=== PATIENT | male | born 1970 | race Caucasian/White ===

== ENCOUNTER 2020-01-26 11:49 | Emergency (ER) | payer OTHER, MEDICAID, SELFPAY ==
[2020-01-26 11:59] VITALS: BP 111/76; PULSE 86; RESP 15; TEMP 36.9; O2SAT 100; BMI 24.4
--- NOTE | 2020-01-26 12:00 | ED_ITS ---
HPI - General Adult General Chief complaint: Dental/Oral Stated complaint: Tongue is swelling, hurts to talk and swallow Time Seen by Provider: 01/26/20 11:55 History of Present Illness HPI narrative: 49-year-old gentleman with the history of smoking and methamphetamine use presents with complaints of a swollen tongue and mild dyspnea for which he would like to be tested for Covid19. He describes swelling and pain on the left side of his tongue is been present for 2-3 days seems like it is getting worse and this morning he was forced to have super breakfast which prompted seeking medical evaluation. While here he notes that he has been chronically short of breath due to smoking for approximately 30 years denies any fevers, myalgias or general malaise. Related Data Home Medications Medication Instructions Recorded Confirmed [MARIJUANA] #0 10/16/06 [METHAMPHETAMINE] #0 10/16/06 Allergies Allergy/AdvReac Type Severity Reaction Status Date / Time No Known Drug Allergies Allergy Verified 01/26/20 11:59 Review of Systems Review of Systems ROS Unobtainable: All systems reviewed & are unremarkable except as noted in HPI and below Patient History Medical History Smoker (Acute) Exam Narrative Exam Narrative: General: Healthy appearing, in no acute distress. Able to give a complete and coherent history. Well-nourished well-developed HEENT: Moist mucous membranes, normal sclera with reactive pupils, there is an approximately 6 mm in diameter healing apt this ulcer on the underside of the tongue left side that is causing his current symptoms. It appears to be healing nicely and does have some surrounding induration. Neck: No lymphadenopathy, supple Respiratory: Lungs are clear to auscultation, no wheezing no rales no rhonchi. Full and symmetrical air movement Cardiac: Regular rate and rhythm no murmurs no bruits Skin: Warm and dry, no rashes Neurologic: Grossly neurologically intact with no obvious asymmetries or abnormalities Extremities: No trauma, well perfused Psych: Cooperative, appropriate insight and affect Initial Vital Signs Initial Vital Signs: Vital Signs Temperature 98.4 F 01/26/20 11:59 Pulse Rate 86 01/26/20 11:59 Respiratory Rate 15 01/26/20 11:59 Blood Pressure 111/76 01/26/20 11:59 Pulse Oximetry 100 01/26/20 11:59 Medical Decision Making Medical Records Medical records reviewed: Yes I reviewed the patient's medical records. [facility] Narrative Medical decision making narrative: Small healing aphthous ulcer on the undersurface left side of his tongue that is causing the pain and edema. We discussed Covid19 testing in light of absolutely no symptoms or complaints of active illness and was shared decision making decided to not obtained a swab. Discharge Plan Departure Patient Disposition: Home Clinical Impression: Injury of tongue Qualifiers: Encounter type: initial encounter Qualified Code(s): S09.93XA - Unspecified injury of face, initial encounter Discharge Date/Time: 01/26/20 12:34 Instructions: DI for Frenulum Laceration in the Mouth Activity Restrictions/Additional Instructions: Thank you for coming in today It looks like you bit or injured the side of your tongue and is healing nicely with some appropriately surrounding swelling. I have given you had discharge instructions that do not fit perfectly but the healing process described is the same. I fully expect that you will feel back to normal within 2-3 days. I appreciate your concern regarding Covid19. At this point, with no fever, myalgias, sniffles, sore throat, diarrhea and generally feeling well I do not recommend testing. That bit of chronic shortness of breath that you are having can definitely be blamed on your smoking. Anything that you can do to stop smoking in all forms will go on to make you healthier I wish you the best Prescriptions: No Action [MARIJUANA] Qty: 0 RF: 0 [METHAMPHETAMINE] Qty: 0 RF: 0
[2020-01-26 12:33] VITALS: BP 111/71; PULSE 71; RESP 15; O2SAT 99
== END 2020-01-26 12:34 | disposition home or self-care (01) ==
LOC: ED 12:23
PROVIDERS: Emergency Provider Emergency Medicine
DX: S09.93XA Unspecified injury of face, initial encounter (principal); R06.00 Dyspnea, unspecified
CPT/HCPCS: 99281

== ENCOUNTER 2020-03-21 12:48 | Emergency (ER) | payer OTHER, MEDICAID, SELFPAY ==
[2020-03-21 12:50] VITALS: BP 131/85; PULSE 95; RESP 12; TEMP 36.8; O2SAT 99; BMI 24.4
--- NOTE | 2020-03-21 13:04 | DI.RAD.S_ITS ---
PROCEDURE: XR HAND LT MIN 3V INDICATIONS: L thumb MCP joint pain TECHNIQUE: 3 views of the hand(s) acquired. COMPARISON: None. FINDINGS: Bones: No fractures or dislocations. Carpal bones are normally aligned. No suspicious bony lesions. First MCP joint osteoarthritic changes are noted. Soft tissues: No suspicious soft tissue calcifications. IMPRESSION: Mild first MCP joint osteoarthritis. No acute fracture or dislocation. Dictated by: Hugh Lambert M.D. on 03/21/2020 at 13:30 Approved by: Hugh Lambert M.D. on 03/21/2020 at 13:42
--- NOTE | 2020-03-21 13:09 | ED_ITS ---
HPI - Extremity Problem <CHARLY Marin - Last Filed: 03/21/20 16:32> General Chief complaint: Extremity Problem,Nontraumatic Stated complaint: lt thumb bothering him/ swelling/ anxiety Time Seen by Provider: 03/21/20 12:53 Source: patient Mode of arrival: Ambulatory Limitations: no limitations History of Present Illness HPI Narrative: 50-year-old male presents emergency department complaining of left thumb pain for the past couple months. He states he believes he broke his thumb approximately 2-3 years ago but was not evaluated. Patient states he feels a aching pain approximately 2-3/10 along top of his thumb and MCP joint. Thumb is worse with flexion and extension. Patient denies any trauma, numbness, tingling, decreased strength, hand pain, elbow pain, or any other concerns. Related Data Home Medications Medication Instructions Recorded Confirmed [MARIJUANA] #0 10/16/06 [METHAMPHETAMINE] #0 10/16/06 Allergies Allergy/AdvReac Type Severity Reaction Status Date / Time No Known Drug Allergies Allergy Verified 03/21/20 12:54 Review of Systems <CHARLY Marin - Last Filed: 03/21/20 16:32> Review of Systems Narrative: REVIEW OF SYSTEMS: GENERAL: Denies fever or chills. HENT: No head trauma. CARDIOVASCULAR: No chest pain or syncope. RESPIRATORY: No shortness of breath or cough. GASTROINTESTINAL: No nausea, vomiting, diarrhea, or constipation. GENITOURINARY: No flank pain or dysuria. MUSCULOSKELETAL: Complains of thumb pain, see HPI. INTEGUMENTARY: No rash, lesions, or pruritus. NEURO: No numbness, tingling. Patient History <CHARLY Marin - Last Filed: 03/21/20 16:32> Medical History Smoker (Acute) Social History Smoking Status: Current every day smoker Smoking Status: Current every day smoker alcohol intake frequency: holidays/special occasions only Substance Use Type: does not use Exam <CHARLY Marin - Last Filed: 03/21/20 16:32> Initial Vital Signs Initial Vital Signs: Vital Signs Temperature 98.2 F 03/21/20 12:50 Pulse Rate 95 H 03/21/20 12:50 Respiratory Rate 12 03/21/20 12:50 Blood Pressure 131/85 03/21/20 12:50 Pulse Oximetry 99 03/21/20 12:50 PHYSICAL EXAMINATION: GENERAL: Well groomed, alert, and cooperative. Answers questions promptly and appropriately. Vital signs noted. HENT: Normocephalic, atraumatic. EYES: Symmetrical, sclera white, no periorbital swelling. RESPIRATORY: Normal respiratory rate, trachea midline, airway patent. No stridor, nasal flaring or accessory muscle use. MUSCULOSKELETAL: Tenderness to dorsal aspect of MCP joint of left thumb, equal strength bilaterally against resistance with flexion and extension. No swelling, erythema, ecchymosis, lesions, or increased temp. Normal gait and coordination. Equal tone and mass bilaterally. EXTREMITIES: CMS intact. No pedal edema. SKIN: Warm, dry, soft, appropriate color for ethnicity. No lesions, rashes, or wounds. NEURO: Alert and Oriented X 3. No sensory deficits. PSYCH: Appropriate affect and mood. <DO Vanita Eden Last Filed: 03/21/20 16:59> Initial Vital Signs Initial Vital Signs: Vital Signs Temperature 98.2 F 03/21/20 12:50 Pulse Rate 95 H 03/21/20 12:50 Respiratory Rate 12 03/21/20 12:50 Blood Pressure 131/85 03/21/20 12:50 Pulse Oximetry 99 03/21/20 12:50 Course <CHARLY Marin - Last Filed: 03/21/20 16:32> Orders Ordered: ED Orders 03/21/20 13:04 XR hand LT min 3V Stat Vital Signs Vital signs: Vital Signs - 8 hr 03/21/20 12:50 Temperature 98.2 F Pulse Rate 95 H Respiratory Rate 12 Blood Pressure 131/85 Pulse Oximetry 99 <DO Vanita Eden Last Filed: 03/21/20 16:59> Orders Ordered: ED Orders 03/21/20 13:04 XR hand LT min 3V Stat Vital Signs Vital signs: Vital Signs - 8 hr 03/21/20 12:50 Temperature 98.2 F Pulse Rate 95 H Respiratory Rate 12 Blood Pressure 131/85 Pulse Oximetry 99 MDM - Extremity (Nontraumatic) <CHARLY Marin - Last Filed: 03/21/20 16:32> Medical Records Attestation: I reviewed the patient's medical records. Lab Data Attestation: I reviewed the patient's lab results. Imaging Data Extremity x-ray #1: Radiologist's Impression: [address] [address] XRay Report Signed Patient: Valentín Perrin LMR#: [id number] : 1970Acct:[id number] Age/Sex: 50 / MDate of Service: 03/21/20 Loc: ED Accession Number: [id number] Procedure: XR hand LT min 3V Ordering Provider: Diana Strong PROCEDURE: XR HAND LT MIN 3V INDICATIONS: L thumb MCP joint pain TECHNIQUE: 3 views of the hand(s) acquired. COMPARISON: None. FINDINGS: Bones: No fractures or dislocations. Carpal bones are normally aligned. No suspicious bony lesions. First MCP joint osteoarthritic changes are noted. Soft tissues: No suspicious soft tissue calcifications. IMPRESSION: Mild first MCP joint osteoarthritis. No acute fracture or dislocation. Dictated by: Hugh Lambert M.D. on 03/21/2020 at 13:30 Approved by: Hugh Lambert M.D. on 03/21/2020 at 13:42 MDM Narrative Medical decision making narrative: 50-year-old male presents emergency department complaining of thumb pain for the past few years. Patient denies any trauma or direct injury but is concerned from previous injury years ago. X-ray shows MCP joint arthritis which correlates with the location of patient's pain, I suspect this is most likely the pain that he is feeling. Less likely infectious joint, gout, or trauma due to lack of erythema, ecchymosis, or swelling. Patient encouraged to use Tylenol, he was given a brace to use at night for the next few days. He was counseled extensively about continue to uses some to prevent muscle atrophy. Follow-up was encouraged. Patient agreed to plan of care verbalized understanding. Discharge Plan Departure Patient Disposition: Home Clinical Impression: Degenerative arthritis of thumb Qualifiers: Laterality: right Qualified Code(s): M18.11 - Unilateral primary osteoarthritis of first carpometacarpal joint, right hand Discharge Date/Time: 03/21/20 14:25 Instructions: DI for Arthritis Activity Restrictions/Additional Instructions: Thank you for entrusting me with your care today. As discussed, your x-ray is negative for fractures but shows arthritis in your thumb. There is no fractures seen on x-ray. I recommend taking Tylenol and/or ibuprofen as needed for pain. I have given you a splint to wear at night to help with pain. Do not wear this splint very frequently as this could cause muscle atrophy. Please follow-up with your primary care provider in the next week for further evaluation if needed. Return emergency department for any new or worsening symptoms such as severe pain, chest pain, shortness of breath, or fevers. Prescriptions: No Action [MARIJUANA] Qty: 0 RF: 0 [METHAMPHETAMINE] Qty: 0 RF: 0 <Chase Calderon, DO - Last Filed: 03/21/20 16:59> Cosign ED Attending Cosignature Attestation: Dr Calderon Co-Sign Statement: I was available for consultation during this patient's emergency department visit. This chart is signed by myself for administrative purposes only. I did not have direct contact with this patient during this visit. They were seen independently by the APC.
== END 2020-03-21 14:25 | disposition home or self-care (01) ==
PROVIDERS: Emergency Provider Nurse Practitioner
DX: M18.11 Unilateral primary osteoarthritis of first carpometacarpal joint, right hand (principal)
CPT/HCPCS: 73130; 99283

== ENCOUNTER 2020-09-24 08:31 | Emergency (ER) | payer OTHER, MEDICAID, SELFPAY ==
[2020-09-24 08:40] VITALS: BP 134/83; PULSE 96; RESP 18; TEMP 36.7; O2SAT 100; BMI 24.4
--- NOTE | 2020-09-24 08:51 | ED.GENADULT ---
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 He is concerned about an infection. Is asking for antibiotics. Related Data Home Medications Medication Instructions Recorded Confirmed [MARIJUANA] #0 10/16/06 Previous Rx's Medication Instructions Recorded penicillin V potassium 500 mg PO QID 7 Days #28 tab 09/24/20 Allergies Allergy/AdvReac Type Severity Reaction Status Date / Time No Known Drug Allergies Allergy Verified 09/24/20 08:43 Review of Systems Constitutional Constitutional: Denies fever(s) Eyes Eyes: Denies blurry vision ENT Ears, Nose, Mouth, and Throat: Denies dizziness, Denies sore throat and Denies throat swelling Respiratory Respiratory: Denies cough Integumentary/Breasts Skin/Breast: Denies lesions and Denies rash Neurologic Neurologic: Denies dizziness Hematologic/Lymphatic Hematologic/Lymphatic: Denies easy bleeding and Denies easy bruising Allergic/Immunologic Allergic/Immunologic: Denies throat swelling Patient History Medical History Smoker Social History Smoking Status: Current every day smoker Smoking Status: Current every day smoker alcohol intake frequency: holidays/special occasions only Substance Use Type: does not use Exam Initial Vital Signs Initial Vital Signs: Vital Signs Temperature 98.1 F 09/24/20 08:40 Pulse Rate 96 H 09/24/20 08:40 Respiratory Rate 18 09/24/20 08:40 Blood Pressure 134/83 09/24/20 08:40 Pulse Oximetry 100 09/24/20 08:40 Const General: cooperative and comfortable HENMT Face and sinus: other (Swelling right maxillary region) Mouth: tongue normal Teeth and gingiva: caries and poor dentition Throat: posterior oropharynx normal Eyes Visual Fofana: normal visual fofana by confrontation Resp Effort & Inspection: normal respiratory effort Skin Lesions: no lesions Rashes: no rashes Extrem General: capillary refill normal Course Vital Signs Vital signs: Vital Signs - 8 hr 09/24/20 08:40 Temperature 98.1 F Pulse Rate 96 H Respiratory Rate 18 Blood Pressure 134/83 Pulse Oximetry 100 Medical Decision Making MDM Narrative Medical decision making narrative: Patient has been sober for 1 year and adamantly states he does not want any pain medication. He states that he was only looking for antibiotics. He does have what appears to be a dental infection in his right upper maxillary region. No abscess seen on exam that would be amenable to draining here in the ER. Will start on antibiotics. He was informed that he needs to follow up with a dentist. He expressed understanding and agreement. Discharge Plan Departure Patient Disposition: Home Clinical Impression: Dental abscess Instructions: Tooth Abscess Activity Restrictions/Additional Instructions: It is important that you follow-up with a dentist. Take the antibiotics as directed. Return to the emergency department for any new or worsening symptoms Prescriptions: New penicillin V potassium 500 mg tablet 500 mg PO QID 7 Days Qty: 28 RF: 0 No Action [MARIJUANA] Qty: 0 RF: 0 [METHAMPHETAMINE] Qty: 0 RF: 0
--- NOTE | 2020-09-24 08:57 | ED.GENADULT ---
HPI - General Adult General Chief complaint: Dental/Oral Stated complaint: swelling in mouth Time Seen by Provider: 09/24/20 08:44 Source: patient Mode of arrival: Ambulatory Limitations: no limitations History of Present Illness HPI narrative: 50-year-old male here for evaluation of swelling to his right upper jaw. Patient states that he noticed last evening. He does have poor dentition secondary to prior drug use. He is concerned about infection. Has not tried anything for symptoms prior to arrival Related Data Previous Rx's Medication Instructions Recorded penicillin V potassium 500 mg PO QID 7 Days #28 tab 09/24/20 Allergies Allergy/AdvReac Type Severity Reaction Status Date / Time No Known Drug Allergies Allergy Verified 09/24/20 08:43 Review of Systems Constitutional Constitutional: Denies fever(s) ENT Ears, Nose, Mouth, and Throat: Denies dizziness Comments: Swelling right upper jaw Cardiovascular Cardiovascular: Denies dyspnea Respiratory Respiratory: Denies cough and Denies dyspnea Integumentary/Breasts Skin/Breast: Denies rash Neurologic Neurologic: Denies dizziness Patient History Medical History Smoker Social History Smoking Status: Current every day smoker Smoking Status: Current every day smoker alcohol intake frequency: holidays/special occasions only Substance Use Type: does not use Exam Initial Vital Signs Initial Vital Signs: Vital Signs Temperature 98.1 F 09/24/20 08:40 Pulse Rate 96 H 09/24/20 08:40 Respiratory Rate 18 09/24/20 08:40 Blood Pressure 134/83 09/24/20 08:40 Pulse Oximetry 100 09/24/20 08:40 Const General: cooperative and comfortable HENMT Head: normal to inspection and normocephalic Face and sinus: other (Swelling right upper trauma) Teeth and gingiva: poor dentition Throat: posterior oropharynx normal Resp Effort & Inspection: normal respiratory effort Skin Lesions: no lesions Rashes: no rashes Extrem General: capillary refill normal Course Vital Signs Vital signs: Vital Signs - 8 hr 09/24/20 08:40 Temperature 98.1 F Pulse Rate 96 H Respiratory Rate 18 Blood Pressure 134/83 Pulse Oximetry 100 Medical Decision Making MDM Narrative Medical decision making narrative: No abscess amenable to drainage here in the emergency department. Does have swelling in his right maxilla region. Does have very poor dentition. Patient was instructed that he needed to contact a dentist for definitive treatment. Will send home with antibiotics. He expressed understanding and agreement. Discharge Plan Departure Patient Disposition: Home Clinical Impression: Dental abscess Instructions: Tooth Abscess Activity Restrictions/Additional Instructions: It is important that you follow-up with a dentist. Take the antibiotics as directed. Return to the emergency department for any new or worsening symptoms Prescriptions: New penicillin V potassium 500 mg tablet 500 mg PO QID 7 Days Qty: 28 RF: 0
== END 2020-09-24 09:03 | disposition home or self-care (01) ==
PROVIDERS: Emergency Provider Emergency Medicine
DX: K04.7 Periapical abscess without sinus (principal)
CPT/HCPCS: 99281

== ENCOUNTER 2021-01-22 02:42 | Emergency (ER) | payer OTHER, MEDICAID, SELFPAY ==
[2021-01-22] VITALS (8 sets, daily range): BP systolic 121–136; BP diastolic 74–80; PULSE 64–83; RESP 11–41; TEMP 36.4–36.9; O2SAT 96–100; BMI 24.4
[2021-01-22] MEDS: KETOROLAC 60 MG/2 ML VIAL 15 MG IV (03:33)
--- NOTE | 2021-01-22 03:33 | DI.CT.S_ITS ---
PROCEDURE: CT KIDNEY URETER BLADDER (KUB) INDICATIONS: right flank pain TECHNIQUE: Noncontrast 5 mm thick sections acquired from the diaphragms to the symphysis. 5 mm thick coronal and sagittal reformats were then performed. For radiation dose reduction, the following was used: automated exposure control, adjustment of mA and/or kV according to patient size. COMPARISON: [facility], , CT ABDOMEN/PELVIS WITH CONTRAST, 10/16/2006, 14:53. FINDINGS: Image quality: Excellent. Lung bases: Lung bases are clear. Heart size is normal. Bibasilar dependent atelectasis. Urinary system: There is a 2 mm stone in the distal right ureter just proximal to the right ureterovesical junction. There is mild right hydronephrosis and perinephric stranding. Both kidneys are normal in size. Both ureters appear non-dilated throughout their expected courses. Bladder wall thickness is normal; no calcified bladder stones. Prostate is mildly enlarged. Other solid organs: Liver is normal in size. Gallbladder is normal. Pancreas is normal in contours. Spleen is normal in size. A 1.4 cm low-density nodule in the inferior aspect of spleen, probably a cyst or hemangioma. No adrenal nodules. Peritoneum and bowel: Unenhanced bowel loops demonstrate normal wall thickness and caliber. There is a moderate amount of stool in colon. No free fluid or air. Nodes and vessels: No retroperitoneal or mesenteric adenopathy by size criteria. Aorta and inferior vena cava are normal in caliber. Mild aortic calcification. Abdominal wall: No ventral hernias. Pelvis: No free pelvic fluid. No inguinal hernias or adenopathy. Bones: No suspicious bony lesions. No vertebral body compression fractures. Degenerative disc disease in lumbar spine. IMPRESSION: 1. A 2 mm obstructive stone in the distal right ureter causing mild right hydronephrosis. No significant discrepancy with the steward/stewardess night radiology preliminary report. Dictated by: Calos Jimenez M.D. on 01/22/2021 at 8:02 Approved by: Calos Jimenez M.D. on 01/22/2021 at 8:25
--- NOTE | 2021-01-22 03:47 | ED_ITS ---
HPI - Abdominal Pain General Chief Complaint: Abdominal Pain Stated Complaint: Rt upper quad pain Time Seen by Provider: 01/22/21 03:33 Source: patient and EMS Mode of arrival: EMS Limitations: no limitations History of Present Illness HPI narrative: Patient is a 50-year-old male who presents with sudden onset of right-sided pain. He says it is in his flank radiating around to his groin. Seems to be quite severe in in excruciating pain despite fentanyl given by EMS. He is nauseous but no vomiting no fever or chills. He has no prior history of kidney stone. MD complaint: abdominal pain Onset (ago): hour(s) Location: R flank Severity: severe Quality: stabbing Related Data Previous Rx's Medication Instructions Recorded hydrocodone-acetaminophen 1 tab PO Q6H PRN #10 tab 01/22/21 ondansetron 4 mg PO Q8H PRN #10 tab 01/22/21 Allergies Allergy/AdvReac Type Severity Reaction Status Date / Time No Known Drug Allergies Allergy Verified 09/24/20 08:43 Review of Systems Review of Systems Narrative: GENERAL: Denies chills, fatigue, malaise, fever, sweats, travel HEENT: Denies sinus pain, ear pain, sore throat, difficulty swallowing, neck pain RESPIRATORY: Denies dyspnea, cough, wheezing, hemoptysis, sputum. CARDIOVASCULAR: Denies chest pain, palpitations, orthopnea, edema GASTROINTESTINAL: See HPI : See HPI MUSCULOSKELETAL: Denies weakness, joint pain, or bony pain SKIN: No rash, no erythema, no pruritus NEUROLOGIC: Denies weakness, dizziness, headache, numbness, change in speech, confusion PSYCHIATRIC: No concerning psychosocial issues. 12 point review of systems is negative except for those stated above and HPI Patient History Medical History Smoker Social History Smoking Status: Current every day smoker Smoking Status: Current every day smoker alcohol intake frequency: holidays/special occasions only Substance Use Type: does not use Exam Initial Vital Signs Initial Vital Signs: Vital Signs Pulse Rate 69 01/22/21 02:47 Respiratory Rate 26 H 01/22/21 02:47 Blood Pressure 135/74 01/22/21 02:47 Pulse Oximetry 100 01/22/21 02:47 GENERAL: Alert 50-year-old male who appears in severe pain and in no acute distress. HEENT: Head atraumatic,EOMI, pupils reactive, face symmetric, moist mucous membranes CARDIOVASCULAR: Regular rate and rhythm without murmurs, rubs or gallops. RESPIRATORY: Breath sounds equal bilaterally, no wheezes rales or rhonchi. ABDOMEN: Soft, nontender. Normoactive bowel sounds all 4 quadrants. No guarding or rebound. Negative Evans sign : Right flank CVA tenderness EXTREMITIES: Normal range of motion, no clubbing or edema. Neurovascularly intact NEUROLOGICAL: Alert and oriented x4.Normal gait and speech. SKIN: Warm, dry, no laceration, no petechiae, no rashes or lesions. Course Orders Ordered: ED Orders 01/22/21 EKG-12 Lead Stat 01/22/21 03:28 EKG-12 Lead Stat 01/22/21 03:33 CT kidney ureter bladder (KUB) Stat 01/22/21 03:40 Complete Blood Count AUTO DIFF Stat Comprehensive Metabolic Panel Stat Lipase Stat Partial Thromboplastin Time Stat Prothrombin Time INR Stat Discontinued Medications Ketorolac Tromethamine (Ketorolac 60 Mg/2 Ml Vial) 15 mg IV NOW ONE Stop: 01/22/21 03:29 Last Admin: 01/22/21 03:33 Dose: 15 mg Documented by: ESNODINA Morphine Sulfate (Morphine 2 Mg/Ml Inj) 2 mg IV NOW ONE Stop: 01/22/21 06:52 Last Admin: 01/22/21 06:55 Dose: 2 mg Documented by: ESNODGRASS Morphine Sulfate (Morphine 2 Mg/Ml Inj) 2 mg IV NOW ONE Stop: 01/22/21 06:58 Vital Signs Vital signs: Vital Signs - 8 hr 01/22/21 02:47 01/22/21 02:48 01/22/21 03:00 Temperature 97.6 F Pulse Rate 69 71 64 Respiratory Rate 26 H 16 23 Blood Pressure 135/74 135/74 136/76 Pulse Oximetry 100 100 98 01/22/21 03:30 01/22/21 04:00 01/22/21 04:30 Temperature Pulse Rate 73 65 66 Respiratory Rate 41 H 11 L 11 L Blood Pressure Pulse Oximetry 100 100 99 01/22/21 05:00 01/22/21 07:15 Temperature 98.5 F Pulse Rate 69 83 Respiratory Rate 13 24 Blood Pressure 121/80 Pulse Oximetry 96 96 MDM - Abdominal Pain Lab Data Result diagrams: 01/22/21 03:40 01/22/21 03:40 Labs: Lab Results 01/22/21 01/22/21 01/22/21 Range/Units 03:40 03:40 03:40 WBC 12.1 H (4.5-11.0) X10^3/uL RBC 4.55 (4.5-5.9) X10^6/uL Hgb 13.8 (13.5-17.5) g/dL Hct 41.6 (41-53) % MCV 91.4 (80-100) fL MCH 30.4 (26-34) PG MCHC 33.3 (30-36) % RDW 14.3 (11.6-14.8) % Plt Count 275 (150-400) X10^3/uL Neut % (Auto) 78.2 H (50-75) % Lymph % (Auto) 13.4 L (25-40) % Mathews % (Auto) 6.4 (3-14) % Eos % (Auto) 1.4 L (2-4) % Baso % (Auto) 0.6 (0-2) % Neut # (Auto) 9500 H (9544-9601) /uL Lymph # (Auto) 1600 (0603-4913) /uL Mathews # (Auto) 800 (0-900) /uL Eos # (Auto) 200 (0-450) /uL Baso # (Auto) 100 (0-100) /uL PT 13.2 H (10.1-12.7) SECONDS INR 1.2 (0.9-1.3) APTT 38 H (26.4-36.2) SECONDS Sodium 139 (137-145) mmol/L Potassium 3.9 (3.4-5.1) mmol/L Chloride 105 (98-107) mmol/L Carbon Dioxide 26 (22-32) mmol/L BUN 19 (9-20) mg/dL Creatinine 1.05 (0.66-1.25) mg/dL Estimated GFR > 60.0 (>60) mL/min BUN/Creatinine Ratio 18.1 (6-22) Glucose 116 H (70-100) mg/dL Calcium 9.7 (8.4-10.2) mg/dL Total Bilirubin 0.4 (0.2-1.3) mg/dL AST 26 (17-59) IU/L ALT 19 (<50) IU/L Alkaline Phosphatase 90 (38-126) U/L Total Protein 7.6 (6.3-8.2) g/dL Albumin 4.3 (3.5-5.0) g/dL Globulin 3.3 (1.7-4.1) g/dL Albumin/Globulin Ratio 1.3 (1.0-2.8) Lipase 84 (23-300) U/L Point of care testing: Urine Dip Bedside Urine Glucose Negative Bedside Urine Bilirubin - Negative Bedside Urine Ketone +/- 5 Urine Specific [place] 1.015 Bedside Urine Occult Blood - Negative Bedside Urine pH 8.0 Bedside Urine Protein + 30 Bedside Urine Urobilinogen - Negative Bedside Urine Nitrite - Negative Bedside Urine Leukocytes - Negative Esterase Imaging Data CT scan - abdomen/pelvis: Radiologist's Impression: Preliminary report moderate right hydronephrosis and perinephric periureteral inflammatory changes with a 2 mm distal ureteral calculus. No evidence of colitis diverticulitis bowel obstruction or acute appendicitis. MDM Narrative Medical decision making narrative: Patient's pain is significantly better after Toradol. There is no sinus is infection he has never had a kidney stone before. At this time I suspect that kidney stone will pass without any intervention. Discharge Plan Departure Patient Disposition: Home Clinical Impression: Kidney stones Instructions: DI for Kidney Stones Activity Restrictions/Additional Instructions: * You've been diagnosed with kidney stone * What to do: Increase fluid intake, Strain urine, try to catch stone * Please follow-up with your primary care provider in the next 2-3 days, you may require urology consultation please discuss this with -If you should have fever, or pain is uncontrolled with medication at home or any other concerning symptoms return to ER for further evaluation MEDICATIONS Take Motrin 800 mg every 8 hours as needed for pain Take [place] every 6 hours if needed for severe pain Take Zofran every 4-6 hours if needed for nausea CONTROLLED SUBSTANCE DISCHARGE (Narcotoic/benzodiazepine) 1. You have been prescribed narcotic medications, it does have acetaminophen/Tylenol/paracetamol in it so do not take extra Tylenol or Tylenol containing products 2. Please understand that we cannot provide further refills of narcotics, benzo diazepines or controlled substances through the ED and her pain management will need to be through your provider. 3. While on these medications you cannot drive or operate heavy machinery. 4. You cannot sign legal documents or perform any duties such as this. 5. As long as you're taking opiate pain medications he should also be taking a stool softener such as Colace, Dulcolax, MiraLAX or prune juice, to help avoid constipation. Prescriptions: New hydrocodone-acetaminophen 5-325 mg tablet 1 tab PO Q6H PRN (Reason: pain) Qty: 10 RF: 0 ondansetron 4 mg tablet,disintegrating 4 mg PO Q8H PRN (Reason: nausea and vomiting) Qty: 10 RF: 0
[2021-01-22 04:08] LABS: Add Manual Diff / Slide Review NO; Basophils Absolute Auto 100 /uL (0-100); Basophils Percent Auto 0.6 % (0-2); Eosinophils Absolute Auto 200 /uL (0-450); Eosinophils Percent Auto 1.4 % (2-4); Hematocrit 41.6 % (41-53); Hemoglobin 13.8 g/dL (13.5-17.5); INR 1.2 (0.9-1.3); Lymphocytes Absolute Auto 1600 /uL (1100-4500); Lymphocytes Percent Auto 13.4 % (25-40); Mean Corpuscular HGB Conc 33.3 % (30-36); Mean Corpuscular Hemoglobin 30.4 PG (26-34); Mean Corpuscular Volume 91.4 fL (80-100); Monocytes Absolute Auto 800 /uL (0-900); Monocytes Percent Auto 6.4 % (3-14); Neutrophils Absolute Auto 9500 /uL (1500-7000); Neutrophils Percent Auto 78.2 % (50-75); Platelet Count 275 X10^3/uL (150-400); Prothrombin Time 13.2 SECONDS (10.1-12.7); Red Blood Cell Count 4.55 X10^6/uL (4.5-5.9); Red Cell Distribution Width 14.3 % (11.6-14.8); White Blood Cell Count 12.1 X10^3/uL (4.5-11.0)
[2021-01-22 04:11] LABS: PTT Partial Thromboplastin Tim 38 SECONDS (26.4-36.2)
[2021-01-22 04:12] LABS: Alanine Aminotransferase 19 IU/L (<50); Albumin 4.3 g/dL (3.5-5.0); Albumin Globulin Ratio 1.3 (1.0-2.8); Alkaline Phosphatase 90 U/L (38-126); Aspartate Aminotransferase 26 IU/L (17-59); BUN Creatinine Ratio 18.1 (6-22); Bilirubin Total 0.4 mg/dL (0.2-1.3); Blood Urea Nitrogen 19 mg/dL (9-20); Calcium 9.7 mg/dL (8.4-10.2); Carbon Dioxide 26 mmol/L (22-32); Chloride 105 mmol/L (98-107); Estimated Glomerular Filt Rate > 60.0 mL/min (>60); Globulin 3.3 g/dL (1.7-4.1); Glucose 116 mg/dL (70-100); HEMOLYSIS < 15 (0-50); Lipase 84 U/L (23-300); Potassium 3.9 mmol/L (3.4-5.1); Sodium 139 mmol/L (137-145); Total Protein 7.6 g/dL (6.3-8.2)
[2021-01-22] MEDS: MORPHINE 2 MG/ML INJ IV (06:55)
== END 2021-01-22 07:16 | disposition home or self-care (01) ==
PROVIDERS: Emergency Provider Emergency Medicine
DX: N20.0 Calculus of kidney (principal)
CPT/HCPCS: 36415; 74176; 80053; 81003; 83690; 85025; 85610; 85730; 93005; 96374; 96375; 99284; J1885; J2270

== ENCOUNTER 2022-06-25 17:53 | Emergency (ER) | payer OTHER, MEDICAID, SELFPAY ==
[2022-06-25 18:15] VITALS: BP 131/76; PULSE 83; RESP 14; TEMP 37.1; O2SAT 98; BMI 24.4
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
[2022-06-25] MEDS: HYDROCODONE/ACET 5/325 TABLET 1 TAB PO (19:37)
[2022-06-25] MEDS: KETOROLAC 30 MG/ML VIAL IM (19:38)
== END 2022-06-25 19:42 | disposition home or self-care (01) ==
PROVIDERS: Emergency Provider Emergency Medicine
DX: S39.012A Strain of muscle, fascia and tendon of lower back, initial encounter (principal); M54.2 Cervicalgia; V89.2XXA Person injured in unspecified motor-vehicle accident, traffic, initial encounter
CPT/HCPCS: 96372; 99283; J1885

== ENCOUNTER 2022-07-16 12:04 | Emergency (ER) | payer OTHER, MEDICAID, SELFPAY ==
[2022-07-16 12:12] VITALS: BP 134/77; PULSE 90; RESP 18; TEMP 36.7; O2SAT 100; BMI 25.0
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
== END 2022-07-16 13:50 | disposition home or self-care (01) ==
PROVIDERS: Emergency Provider Emergency Medicine
DX: M54.50 Low back pain, unspecified (principal); V89.2XXA Person injured in unspecified motor-vehicle accident, traffic, initial encounter
CPT/HCPCS: 72100; 99281; 99283

== ENCOUNTER → 2023-07-28 12:20 | Outpatient (CLI) | payer OTHER, MEDICAID, SELFPAY ==
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
== END ==
PROVIDERS: PCP Nurse Practitioner Family; Referring Provider Nurse Practitioner Family; Visit Provider Nurse Practitioner Family
DX: M25.552 Pain in left hip (principal)
CPT/HCPCS: 73502

== ENCOUNTER 2023-10-21 19:30 | Emergency (ER) | payer OTHER, MEDICAID, SELFPAY ==
[2023-10-21 19:53] VITALS: BP 141/84; PULSE 91; RESP 16; TEMP 36.8; O2SAT 97; BMI 22.4
[2023-10-21] MEDS: PROPARACAINE 0.5% OPHTH SOL 1 DROPS EYE-RIGHT (20:00)
--- NOTE | 2023-10-21 22:28 | ED_ITS ---
HPI - Eye Problem General Chief complaint: Eye Problems Stated complaint: rt eye pain, metal shaving Time Seen by Provider: 10/21/23 21:25 Source: patient Mode of arrival: Ambulatory History of Present Illness HPI Narrative: 53-year-old male presents with right eye pain and sensation of foreign body after grinding metal off a radial tear several hours prior to arrival. Patient states that he was wearing sunglasses. Patient reports rinsing out his eye immediately afterwards but still feels something is inside his eye. Related Data Previous Rx's Medication Instructions Recorded hydrocodone 5 mg-acetaminophen 325 1 tab PO Q6H PRN pain #10 tabs 01/22/21 mg tablet ondansetron 4 mg disintegrating 4 mg PO Q8H PRN nausea and 01/22/21 tablet vomiting #10 tabs cyclobenzaprine 10 mg tablet 10 mg PO TID PRN muscle spasm #14 06/25/22 tabs hydrocodone 5 mg-acetaminophen 325 1 tab PO Q4-6H PRN pain #10 tabs 06/25/22 mg tablet ketorolac 10 mg tablet 10 mg PO Q6H PRN pain #14 tabs 06/25/22 cyclobenzaprine 10 mg tablet 10 mg PO TID PRN muscle spasm #14 07/16/22 tabs lidocaine 5 % topical patch 1 patch topical DAILY #15 ea 07/16/22 erythromycin 5 mg/gram (0.5 %) eye 0.5 inch EYE-RIGHT TID #3.5 grams 10/21/23 ointment Allergies Allergy/AdvReac Type Severity Reaction Status Date / Time No Known Drug Allergies Allergy Verified 10/21/23 19:55 Review of Systems Review of Systems Narrative: See HPI for pertinent positives, otherwise review of systems negative Patient History Medical History Smoker Social History Smoking Status: Current every day smoker Smoking Status: Current every day smoker alcohol intake frequency: holidays/special occasions only Substance Use Type: marijuana Exam Narrative Exam Narrative: General: Awake, alert, in no apparent distress HEENT: Normocephalic, atraumatic, pupils equal and reactive to light, oropharynx clear, oral mucosa moist, right corneal abrasion, no globe rupture Neck: Supple Cardiovascular: 2+ radial bilateral, regular rhythm/rate Pulmonary: Regular respirations, no respiratory distress Abdominal: nondistended : Exam deferred Back: Normal motion Extremities: No swellinh bilateral upper/lower extremities Skin: Warm, dry, intact, no rashes Neuro: No focal neurological deficits, moving all 4 extremities equally, normal speech Psych: Normal mood, normal affect Initial Vital Signs Initial Vital Signs: Vital Signs Temperature 98.2 F 10/21/23 19:53 Pulse Rate 91 H 10/21/23 19:53 Respiratory Rate 16 10/21/23 19:53 Blood Pressure 141/84 H 10/21/23 19:53 Pulse Oximetry 97 10/21/23 19:53 Oxygen Delivery Method Room Air 10/21/23 19:53 Course Orders Ordered: Discontinued Medications Diphtheria/Tetanus/Acell Pertussis (Tet,Diph,Pertuss(Acell),Vac/Pf 0.5 Ml Syringe) 0.5 ml IM .ONCE ONE Stop: 10/21/23 19:57 Last Admin: 10/21/23 21:30 Dose: Not Given Documented By: RUBIA Erythromycin (Erythromycin Ophth 1 Gm Oint) 1 applic EYE-RIGHT NOW ONE Stop: 10/21/23 22:29 Last Admin: 10/21/23 22:45 Dose: 1 applic Documented By: CHARLEY Fluorescein Sodium (Fluorescein 1 Mg Strip) 1 mg EYE-LEFT NOW ONE Stop: 10/21/23 22:11 Last Admin: 10/21/23 22:45 Dose: 1 mg Documented By: CHARLEY Proparacaine HCl (Proparacaine 0.5% Ophth Angie) 1 drops EYE-RIGHT PRN PRN PRN Reason: Pain, Moderate (4-6) Last Admin: 10/21/23 20:00 Dose: 1 drop Documented By: RUBIA Vital Signs Vital signs: Vital Signs - 8 hr 10/21/23 19:53 Temperature 98.2 F Pulse Rate 91 H Respiratory Rate 16 Blood Pressure 141/84 H Pulse Oximetry 97 Oxygen Delivery Method Room Air MDM - Eye Problem Differential Diagnosis Differential diagnosis: Likely corneal abrasion, acute iritis, hyphema, subconjunctival hemorrhage, corneal ulcer and ruptured globe MDM Narrative Medical decision making narrative: Patient presents with right eye irritation. No foreign body appreciated. Minor abrasion of cornea noted. Erythromycin ointment given. PCP follow-up recomme nded within 1 week. Return precautions given. Patient discharged home in stable condition. Discharge Plan Departure Patient Disposition: Home Clinical Impression: Corneal abrasion Qualifiers: Encounter type: initial encounter Laterality: right Qualified Code(s): S05.01XA - Injury of conjunctiva and corneal abrasion without foreign body, right eye, initial encounter Instructions: DI for Corneal Abrasion Prescriptions: New erythromycin 5 mg/gram (0.5 %) ointment 0.5 inch EYE-RIGHT TID Qty: 3.5 0RF No Action hydrocodone-acetaminophen 5-325 mg tablet 1 tab PO Q6H PRN (Reason: pain) Qty: 10 0RF ondansetron 4 mg tablet,disintegrating 4 mg PO Q8H PRN (Reason: nausea and vomiting) Qty: 10 0RF cyclobenzaprine 10 mg tablet 10 mg PO TID PRN (Reason: muscle spasm) Qty: 14 0RF hydrocodone-acetaminophen 5-325 mg tablet 1 tab PO Q4-6H PRN (Reason: pain) Qty: 10 0RF ketorolac 10 mg tablet 10 mg PO Q6H PRN (Reason: pain) Qty: 14 0RF cyclobenzaprine 10 mg tablet 10 mg PO TID PRN (Reason: muscle spasm) Qty: 14 0RF lidocaine 5 % adhesive patch,medicated 1 patch topical DAILY Qty: 15 0RF Rx Instructions: leave on most painful area for up to 12 hrs Referrals: Mia Hernandez RN [Primary Care Provider] - Stand Alone Forms: Patient Portal/API
[2023-10-21] MEDS: ERYTHROMYCIN OPHTH 1 GM OINT 1 APPLIC EYE-RIGHT (22:45)
[2023-10-21] MEDS: FLUORESCEIN 1 MG STRIP EYE-LEFT (22:45)
[2023-10-21 22:52] VITALS: BP 129/87; PULSE 90; RESP 16; O2SAT 99
== END 2023-10-21 22:54 | disposition home or self-care (01) ==
PROVIDERS: Emergency Provider Emergency Medicine; PCP Nurse Practitioner Family
DX: S05.01XA Injury of conjunctiva and corneal abrasion without foreign body, right eye, initial encounter (principal)
CPT/HCPCS: 99282

== ENCOUNTER 2023-11-29 14:30 | Outpatient (RCR) | payer OTHER, MEDICAID, SELFPAY ==
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
--- NOTE | 2023-11-18 17:11 | PT.OPPOC ---
Physical, Occupational & Speech Therapy At [facility] Current Diagnoses Pain in left hip (11/18/23) Low back pain, unspecified (11/18/23) Visit Care Team Role Provider Type Mia Hernandez, RN Attending Provider Non-Staff Family Provider Primary Care Provider Referring Provider Specialty: Family Practice Address: [address] [place] [address], [id number] Email: Plan Of Care PT-OP-T Assessment and Plan Start: 11/11/23 19:40 Freq: Status: Active Protocol: Document 11/18/23 14:33 LRN (Rec: 11/18/23 17:07 LRN [id number]) Physical Therapy Assessment Rehab Potential Rehabilitation Potential Good Evaluation Complexity Number of Personal Factors/Comorbidities 1-2 Number of Body Systems Impaired 4 or More Clinical Presentation at Evaluation Evolving Impairments Impairments Activity Tolerance,Pain, Posture,ROM,Soft Tissue Mobility,Strength,Transfers Goals Three Impairment Prolonged static positioning causing L hand numbness. Short Term Goal (STG) Pt educated in proper sitting/ standing and educated in best nighttime positioning posture. STG Duration 2 wks-12/03/23 Half-Way Goal (LTG) Eliminate the numbing in the L hand with static sitting. LTG Duration 8 wks-01/14/24 Two Impairment L neck pain rated 5/10 looking around & w/use of L shdr Short Term Goal (STG) Decrease L neck/shoulder pain to no greater than 2/5. STG Duration 4 wks-12/17/23 Half-Way Goal (LTG) Improve neck/L shoulder joint mobility for pt able to look around and move his L shoulder without L neck/shoulder pain. LTG Duration 12 wks-02/11/24 One Impairment Pt lacks full self care HEP. Short Term Goal (STG) Pt will be educated in log roll transfers, proper body mechanics for ADLs and his job . 11/18/23: Pt educated in log roll transfer in/out of bed. STG Duration 2 wks-12/03/23 progressed 11/10 (review transfer, educ body mech, post) Half-Way Goal (LTG) Pt will be independent in an effective self care HEP for L neck/core/L LB & hip strengthening and mobility ex' s. LTG Duration 12 wks-02/11/24 Assessment Summary Assessment Pt is a 53 yo male who presents with L neck/shoulder pain due to facet joint dys ( C3, C4, C5), neck instability, and LUE radial neural tension , and soft tissue muscle guarding. Further assessment for weakness will be at his next appointment. L LBP is probably soft tissue related as his is very limited in hip and lumbar mobility. 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 He tolerated 20 secs in L VA Test position (rot'd L) prior to onset of numbness in the hand; therefore he may have thoracic out involvement, further assessment needed. Physical Therapy Plan Frequency and Duration Frequency of Treatment 2x/Week Duration of treatment (weeks) 12 Plan of Care Start Date 11/18/23 Plan of Care End Date 02/11/24 Therapeutic Interventions Therapeutic Interventions Balance Training,Home Exercise Program,Joint Mobilizations, Manual Therapy,Neuromuscular Re-education,Self-Care/Home Management,Soft Tissue Mobilization,Taping, Therapeutic Activities, Therapeutic Exercises Modalities Cold Pack/Ice Massage,Electric Stimulation,Hot Packs Next Visit Focus/Plan Next Note Type Treatment Note Next Visit Plan Next: Assess hip/core/L shoulder strength, PROM hip IR /ER, & UE DTRs. Check for L thoracic outlet. Pt education in body mechanics, posture ( sit, stand, sleeping), pain management, when appropriate self care STM. L NECK/SHOULDER rehab: modalities (MH, ice, ES), manual therapy (neck ms & jt mob, ?suboccip release), exer (ROM/stabilization). L LB REHAB: LB/hip stretches, core stabilization. Plan of Care Dates Plan of Care Start Date 11/18/23 Plan of Care End Date 02/11/24 Electronically Signed by: Lovely Bernal, PT 11/18/23 8263 If you are in agreement with this Plan of Care, please return a signed and dated copy. I have reviewed this Plan of Care and certify that the skilled therapy services above are required to meet the patient?s needs. Physician Signature Date Printed Name and Credentials Clinical Instructor Signature Printed Name and Credentials
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
--- NOTE | 2023-11-25 14:10 | PT-OP ANOTE ---
Pt called in to report he was driving from [place] and not able to make appt., declined call list scheduling for tomorrow.
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
--- NOTE | 2023-12-02 15:01 | PT-OP ANOTE ---
Pt did not show for appt today. [employer]PENTERS called and left message missed appt, inquired how doing/reasoning for missed appt and wanting to assist progress PT. Offered an opening tomorrow, please call back to schedule for missed appt today. Also reminded missed appt on 11/25 and compliance contract call >24 hrs cancel and NS x2 usually discharged. Reminded next appt 12/10.
--- NOTE | 2023-12-10 10:58 | PT-OP ANOTE ---
DNS. Msg left informing pt of missed appt. Reviewed CX/NS policy and requested pt call back to notify if he wanted to continue or if he planned on not returning to therapy. Requested call back for either reason.
--- NOTE | 2023-12-15 10:18 | PT-OP ANOTE ---
ETL PROGRAMMER sent text to pt's phone today, chart review will be his 4 of 7 scheduled appts missed (no show and cancel <24 hrs). We have notified him via voicemail regarding wanting to assist him in progress in your rehab and importance of compliance in attendance to do so. We did not hear back from him since our last 2 voice messages left so as of today will discharge him from PT as written in signed contract > 2 no shows and or cancelling >50% of scheduled appts. Schedulers will cancel remaining appts and if he wishes to continue will need to get a new referral from your physician.
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
== END 2023-12-28 08:00 | disposition home or self-care (01) ==
LOC: PHYS 14:30
PROVIDERS: Family Provider Nurse Practitioner Family; PCP Nurse Practitioner Family; Referring Provider Nurse Practitioner Family; Visit Provider Nurse Practitioner Family
DX: M54.50 Low back pain, unspecified (principal); M25.552 Pain in left hip
CPT/HCPCS: 97110; 97140; 97162; 97535

== ENCOUNTER → 2024-05-04 15:51 | Outpatient (CLI) | payer OTHER, MEDICAID, SELFPAY ==
--- NOTE | 2024-05-04 | DI.RAD.S_ITS ---
PROCEDURE: XR SHOULDER RT MIN 2V INDICATIONS: Pain in right shoulder TECHNIQUE: 3 views of the shoulder were acquired. COMPARISON: None. FINDINGS: Bones: No fractures or dislocations. Moderate acromioclavicular joint and glenohumeral joint osteoarthritic changes are seen with joint space narrowing, subchondral sclerosis and marginal osteophyte formation. No suspicious bony lesions. Visualized ribs appear intact. Soft tissues: No suspicious soft tissue calcifications. IMPRESSION: No acute shoulder fracture or dislocation. Moderate right shoulder joint osteoarthritis as above. Dictated by: Hugh Lambert M.D. on 05/04/2024 at 17:33 Approved by: Hugh Lambert M.D. on 05/04/2024 at 17:33
== END ==
LOC: RAD 15:54
PROVIDERS: Family Provider Nurse Practitioner Family; PCP Nurse Practitioner Family; Referring Provider Nurse Practitioner Family; Visit Provider Nurse Practitioner Family
DX: M19.011 Primary osteoarthritis, right shoulder (principal); M25.511 Pain in right shoulder
CPT/HCPCS: 73030

== ENCOUNTER 2024-10-07 12:43 | Emergency (ER) | payer OTHER, SELFPAY ==
[2024-10-07 12:47] VITALS: BP 139/83; PULSE 97; RESP 16; TEMP 37.1; O2SAT 98; BMI 24.4
--- NOTE | 2024-10-07 13:59 | ED_ITS ---
HPI - Dental/Oral <Hilaria Hamlin PA-C - Last Filed: 10/07/24 14:47> General Chief complaint: Dental/Oral Stated complaint: Tooth pain Time Seen by Provider: 10/07/24 13:41 Source: patient Mode of arrival: Ambulatory History of Present Illness HPI Narrative: Mr. Perrin is a very pleasant 54-year-old male with chronic poor dentition who presents to the emergency department for left lower dental pain x2 days. Patient states he has not seen a dentist in 20 years and he only has 3 teeth remaining. However about 2 days ago he noticed some pain and redness on the bottom left side of his dentition. He comes to the ER as he suspects he may need antibiotics. Denies fevers, chills, difficulty swallowing, facial swelling, neck swelling. States that he typically uses Tylenol for his pain however it did not resolve the pain this time. Related Data Previous Rx's Medication Instructions Recorded hydrocodone 5 mg-acetaminophen 325 1 tab PO Q6H PRN pain #10 tabs 01/22/21 mg tablet ondansetron 4 mg disintegrating 4 mg PO Q8H PRN nausea and 01/22/21 tablet vomiting #10 tabs cyclobenzaprine 10 mg tablet 10 mg PO TID PRN muscle spasm #14 06/25/22 tabs hydrocodone 5 mg-acetaminophen 325 1 tab PO Q4-6H PRN pain #10 tabs 06/25/22 mg tablet ketorolac 10 mg tablet 10 mg PO Q6H PRN pain #14 tabs 06/25/22 cyclobenzaprine 10 mg tablet 10 mg PO TID PRN muscle spasm #14 07/16/22 tabs lidocaine 5 % topical patch 1 patch topical DAILY #15 ea 07/16/22 erythromycin 5 mg/gram (0.5 %) eye 0.5 inch EYE-RIGHT TID #3.5 grams 10/21/23 ointment amoxicillin 875 mg-potassium 1 tab PO Q12H 10 days #20 tabs 10/07/24 clavulanate 125 mg tablet chlorhexidine gluconate 0.12 % 15 ml buccal BID #300 mL 10/07/24 mouthwash (Peridex) Allergies Allergy/AdvReac Type Severity Reaction Status Date / Time No Known Drug Allergies Allergy Verified 10/21/23 19:55 Review of Systems <Hilaria Hamlin PA-C - Last Filed: 10/07/24 14:47> Review of Systems ROS Unobtainable: All systems reviewed & are unremarkable except as noted in HPI and below Patient History <Hilaria Hamlin PA-C - Last Filed: 10/07/24 14:47> Medical History Smoker Social History Smoking Status: Current every day smoker Smoking Status: Current every day smoker tobacco type: cigarettes alcohol intake frequency: holidays/special occasions only Exam <Hilaria Hamlin PA-C - Last Filed: 10/07/24 14:47> Narrative Exam Narrative: GENERAL: 54 year old patient appears stated age. Well-developed patient, in no acute distress. HEAD: Atraumatic. Normocephalic. EYES: Extraocular motions intact. No scleral icterus. No injection or drainage. ENT: Subjective tenderness to palpation of remaining tooth root #22 left lower jaw. Erythema of gingiva surrounding tooth number 22. No fluctuance or palpable abscess in this area. Two bottom teeth and 1 top teeth remaining. No swelling of the floor of the mouth. Oropharynx widely patent. Submandibular region soft. NECK: Trachea midline. Cervical ROM intact. CARDIOVASCULAR: Regular rate and rhythm. RESPIRATORY: ?Nonlabored respirations. ?Speaking in clear, full sentences. ?? NEURO: AOx3. ?Clear speech. ?Moves all 4 extremities appropriately. SKIN: No rash or erythema of visible areas Initial Vital Signs Initial Vital Signs: Vital Signs Temperature 98.8 F 10/07/24 12:47 Pulse Rate 97 H 10/07/24 12:47 Respiratory Rate 16 10/07/24 12:47 Blood Pressure 139/83 10/07/24 12:47 Pulse Oximetry 98 10/07/24 12:47 Oxygen Delivery Method Room Air 10/07/24 12:47 <Kory Hinojosa MD - Last Filed: 10/07/24 20:52> Initial Vital Signs Initial Vital Signs: Vital Signs Temperature 98.8 F 10/07/24 12:47 Pulse Rate 97 H 10/07/24 12:47 Respiratory Rate 16 10/07/24 12:47 Blood Pressure 139/83 10/07/24 12:47 Pulse Oximetry 98 10/07/24 12:47 Oxygen Delivery Method Room Air 10/07/24 12:47 Course <Hilaria Hamlin PA-C - Last Filed: 10/07/24 14:47> Orders Ordered: Discontinued Medications Acetaminophen (Acetaminophen 325 Mg Tablet) 975 mg PO NOW ONE Stop: 10/07/24 14:05 Last Admin: 10/07/24 14:31 Dose: 975 mg Documented By: ISABELLA Ibuprofen (Ibuprofen 400 Mg Tablet) 400 mg PO NOW ONE Stop: 10/07/24 14:05 Last Admin: 10/07/24 14:30 Dose: 400 mg Documented By: ISABELLA Vital Signs Vital signs: Vital Signs - 8 hr 10/07/24 15:06 Pulse Rate 90 Respiratory Rate 16 Blood Pressure 135/82 Pulse Oximetry 98 Oxygen Delivery Method Room Air <Kory Hinojosa MD - Last Filed: 10/07/24 20:52> Orders Ordered: Discontinued Medications Acetaminophen (Acetaminophen 325 Mg Tablet) 975 mg PO NOW ONE Stop: 10/07/24 14:05 Last Admin: 10/07/24 14:31 Dose: 975 mg Documented By: ISABELLA Ibuprofen (Ibuprofen 400 Mg Tablet) 400 mg PO NOW ONE Stop: 10/07/24 14:05 Last Admin: 10/07/24 14:30 Dose: 400 mg Documented By: ISABELLA Vital Signs Vital signs: Vital Signs - 8 hr 10/07/24 15:06 Pulse Rate 90 Respiratory Rate 16 Blood Pressure 135/82 Pulse Oximetry 98 Oxygen Delivery Method Room Air MDM - Dental/Oral <Hilaria Hamlin PA-C - Last Filed: 10/07/24 14:47> Medical Records Attestation: I reviewed the patient's medical records. [facility] Narrative Medical decision making narrative: 54-year-old male with chronic poor dentition who presents to the emergency department for left lower dental pain x2 days. Differential diagnosis includes but is not limited to gingivitis, dental abscess, dental fracture, acute alveolar osteitis, gingival hyperplasia, periapical abscess, etc. On exam the patient is in no acute distress, nontoxic appearing, vital signs appropriate. He unfortunately has very chronic poor dentition with only 3 teeth remaining however he does have numerous broken teeth roots intact. He is having subjective pain and tenderness at left lower tooth number 22 with surrounding gingival erythema. No palpable abscess at this time however concern for developing abscess so we will treat him with Augmentin b.i.d. times 10 days. I also prescribed him Peridex mouth wash. We will give ibuprofen/Tylenol for pain, also recommended Orajel. real estate services administrator was consulted who provided him with dental clinic follow-up information. Stressed the importance of follow up with a dentist for further management. Patient verbalized understanding of all information and is stable for discharge home. We discussed ER return precautions. Discharge Plan Departure Patient Disposition: Home Clinical Impression: Dental infection, Pain, dental Instructions: DI for Dental Pain Activity Restrictions/Additional Instructions: Dear Mr. Perrin, Today you were evaluated for left lower tooth pain. We are treating you with antibiotics twice daily for 10 days for dental infection. I have also prescribed mouthwash that you can use twice daily. I recommend you use ibuprofen/Tylenol for pain and Orajel which can be purchased [id number]. It is extremely important to follow up with a dentist for further management. Please take Ibuprofen (Motrin/Advil) or Acetaminophen (Tylenol) for pain. These are available over the counter. You may take Ibuprofen 600 mg every 8 hours with food for pain. You may also take Acetaminophen 650 mg every 4-6 hours for pain. Do not exceed 3000 mg of Tylenol a day as this can cause liver damage. Do not drink alcohol with either of these medications. If you develop any new or worsening symptoms such as trouble swallowing, fevers, facial swelling, neck swelling, or any other concerns please return to the ER. Please follow up with your primary care doctor within the next 2-3 days for ER follow-up. (If you do not have a PCP you can call [phone]. ?to schedule an appointment with an [facility] Primary Care Provider) IF YOU DEVELOP ANY NEW OR WORSENING SYMPTOMS, RETURN TO THE ER! Please read the attached instructions, they highlight more specific treatments and interventions for you at home. Thank you for letting me participate in your care, Hilaria Hamlin PA-C Prescriptions: New amoxicillin-pot clavulanate 875-125 mg tablet 1 tab PO Q12H 10 Days Qty: 20 0RF chlorhexidine gluconate [Peridex] 0.12 % mouthwash 15 ml buccal BID Qty: 300 0RF No Action hydrocodone-acetaminophen 5-325 mg tablet 1 tab PO Q6H PRN (Reason: pain) Qty: 10 0RF ondansetron 4 mg tablet,disintegrating 4 mg PO Q8H PRN (Reason: nausea and vomiting) Qty: 10 0RF cyclobenzaprine 10 mg tablet 10 mg PO TID PRN (Reason: muscle spasm) Qty: 14 0RF hydrocodone-acetaminophen 5-325 mg tablet 1 tab PO Q4-6H PRN (Reason: pain) Qty: 10 0RF ketorolac 10 mg tablet 10 mg PO Q6H PRN (Reason: pain) Qty: 14 0RF cyclobenzaprine 10 mg tablet 10 mg PO TID PRN (Reason: muscle spasm) Qty: 14 0RF lidocaine 5 % adhesive patch,medicated 1 patch topical DAILY Qty: 15 0RF Rx Instructions: leave on most painful area for up to 12 hrs erythromycin 5 mg/gram (0.5 %) ointment 0.5 inch EYE-RIGHT TID Qty: 3.5 0RF Referrals: Mia Hernandez ARNP, RN [Primary Care Provider] - Stand Alone Forms: Patient Portal/API/Survey ED Sign-out <Kory Hinojsoa MD - Last Filed: 10/07/24 20:52> Cosign ED Attending Barbara Attestation: I was immediately available in the department for consultation. This documentation has been reviewed and I agree with assessment and plan. Supervised by Kory Hinojosa MD
[2024-10-07] MEDS: IBUPROFEN 400 MG TABLET PO (14:30)
[2024-10-07] MEDS: ACETAMINOPHEN 325 MG TABLET 975 MG PO (14:31)
[2024-10-07 15:06] VITALS: BP 135/82; PULSE 90; RESP 16; O2SAT 98
== END 2024-10-07 15:09 | disposition home or self-care (01) ==
PROVIDERS: Emergency Provider Physician Assistant; Family Provider Nurse Practitioner Family; PCP Nurse Practitioner Family
DX: K04.7 Periapical abscess without sinus (principal)
CPT/HCPCS: 99283

== ENCOUNTER 2025-02-24 10:11 | Emergency (ER) | payer OTHER, SELFPAY ==
[2025-02-24 10:16] VITALS: BP 134/81; PULSE 98; O2SAT 98
[2025-02-24 10:19] VITALS: BP 134/81; PULSE 96; RESP 16; TEMP 36.5; O2SAT 98; BMI 23.7
[2025-02-24 10:30] VITALS: PULSE 92; O2SAT 99
[2025-02-24 10:53] LABS: Add Manual Diff / Slide Review NO; Basophils Absolute Auto 0 /uL (0-100); Basophils Percent Auto 0.4 % (0-2); Eosinophils Absolute Auto 200 /uL (0-450); Eosinophils Percent Auto 1.8 % (2-4); Hematocrit 38.2 % (41-53); Hemoglobin 12.8 g/dL (13.5-17.5); Lymphocytes Absolute Auto 1300 /uL (1100-4500); Lymphocytes Percent Auto 14.7 % (25-40); Mean Corpuscular HGB Conc 33.6 % (30-36); Mean Corpuscular Hemoglobin 30.5 PG (26-34); Mean Corpuscular Volume 90.9 fL (80-100); Monocytes Absolute Auto 800 /uL (0-900); Monocytes Percent Auto 8.9 % (3-14); Neutrophils Absolute Auto 6500 /uL (1500-7000); Neutrophils Percent Auto 74.2 % (50-75); Platelet Count 292 X10^3/uL (150-400); Red Blood Cell Count 4.21 X10^6/uL (4.5-5.9); Red Cell Distribution Width 13.8 % (11.6-14.8); White Blood Cell Count 8.8 X10^3/uL (4.5-11.0)
[2025-02-24 11:00] VITALS: PULSE 88; O2SAT 99
--- NOTE | 2025-02-24 11:02 | EKG_ITS ---
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
[2025-02-24 11:04] LABS: Alanine Aminotransferase 27 IU/L (<50); Albumin 4.1 g/dL (3.5-5.0); Albumin Globulin Ratio 1.1 (1.0-2.8); Alkaline Phosphatase 83 U/L (38-126); Aspartate Aminotransferase 28 IU/L (17-59); BUN Creatinine Ratio 20.8 (6-22); Bilirubin Total 0.5 mg/dL (0.2-1.3); Blood Urea Nitrogen 16 mg/dL (9-20); Carbon Dioxide 24 mmol/L (22-32); Chloride 105 mmol/L (98-107); Estimated Glomerular Filt Rate > 60 mL/min (>60); Globulin 3.6 g/dL (1.7-4.1); Glucose 119 mg/dL (70-99); HEMOLYSIS < 15 (0-50); Lipase 53 U/L (23-300); Potassium 4.5 mmol/L (3.4-5.1); Sodium 137 mmol/L (137-145); Total Protein 7.7 g/dL (6.3-8.2)
--- NOTE | 2025-02-24 11:06 | ED_ITS ---
HPI - Abdominal Pain General Chief Complaint: Abdominal Pain Stated Complaint: May have hernia; symptoms for 5days Time Seen by Provider: 02/24/25 10:58 History of Present Illness HPI narrative: Patient is a 55-year-old male no significant past medical history is a current smoker presenting to day with right testicular pain. Reports that it started about 6 days ago. 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 Reports that he was pain in his right testicle feels like it might be a hernia. He has not had a hernia previously. Had a bowel movement prior to arrival no significant nausea. Took naproxen if needed for pain but has not taken any for a couple of days. Related Data Previous Rx's Medication Instructions Recorded hydrocodone 5 mg-acetaminophen 325 1 tab PO Q6H PRN pain #10 tabs 01/22/21 mg tablet ondansetron 4 mg disintegrating 4 mg PO Q8H PRN nausea and 01/22/21 tablet vomiting #10 tabs cyclobenzaprine 10 mg tablet 10 mg PO TID PRN muscle spasm #14 06/25/22 tabs hydrocodone 5 mg-acetaminophen 325 1 tab PO Q4-6H PRN pain #10 tabs 06/25/22 mg tablet ketorolac 10 mg tablet 10 mg PO Q6H PRN pain #14 tabs 06/25/22 cyclobenzaprine 10 mg tablet 10 mg PO TID PRN muscle spasm #14 07/16/22 tabs lidocaine 5 % topical patch 1 patch topical DAILY #15 ea 07/16/22 erythromycin 5 mg/gram (0.5 %) eye 0.5 inch EYE-RIGHT TID #3.5 grams 10/21/23 ointment chlorhexidine gluconate 0.12 % 15 ml buccal BID #300 mL 10/07/24 mouthwash (Peridex) doxycycline hyclate 100 mg capsule 100 mg PO BID #14 caps 02/24/25 Allergies Allergy/AdvReac Type Severity Reaction Status Date / Time No Known Drug Allergies Allergy Verified 10/21/23 19:55 Patient History Medical History Smoker tobacco type: cigarettes alcohol intake frequency: holidays/special occasions only Exam Initial Vital Signs Initial Vital Signs: Vital Signs Pulse Rate 98 H 02/24/25 10:16 Blood Pressure 134/81 02/24/25 10:16 Pulse Oximetry 98 02/24/25 10:16 GENERAL: Alert 55-year-old male and in no acute distress. HEENT: Head atraumatic,EOMI, pupils reactive, face symmetric, moist mucous membranes CARDIOVASCULAR: Regular rate and rhythm without murmurs, rubs or gallops. RESPIRATORY: Breath sounds equal bilaterally, no wheezes rales or rhonchi. ABDOMEN: Soft, nontender. Normoactive bowel sounds all 4 quadrants. No guarding or rebound. : Nurse run present for exam. Significant testicular swelling nose erythema possible hernia present Left side nontender no swelling no hernia present EXTREMITIES: Normal range of motion, no clubbing or edema. Neurovascularly intact NEUROLOGICAL: Alert and oriented x4.Normal gait and speech. Cranial nerves II through XII grossly intact. SKIN: Warm, dry, no laceration, no petechiae, no rashes or lesions. Course Orders Ordered: ED Orders 02/24/25 10:39 Complete Blood Count AUTO DIFF Stat Comprehensive Metabolic Panel Stat Lipase Stat 02/24/25 10:42 EKG-12 Lead Stat 02/24/25 11:18 US scrotum Stat Discontinued Medications Ceftriaxone Sodium 500 mg/ (Dextrose) 50 mls @ 100 mls/hr IV NOW ONE Stop: 02/24/25 13:11 Last Infusion: 02/24/25 14:07 Dose: Infused Documented By: Admin: 02/24/25 13:29 Dose: 100 mls/hr Documented By: CHARLEY Ketorolac Tromethamine (Ketorolac 30 Mg/Ml Vial) 15 mg IV NOW ONE Stop: 02/24/25 11:19 Last Admin: 02/24/25 12:01 Dose: 15 mg Documented By: HENRY Ondansetron HCl (Ondansetron 4 Mg/2 Ml Inj) 4 mg IV NOW PRN PRN Reason: Nausea And Vomiting Ondansetron HCl (Ondansetron 4 Mg Odt) 4 mg PO NOW PRN PRN Reason: Nausea And Vomiting Vital Signs Vital signs: Vital Signs - 8 hr 02/24/25 10:16 02/24/25 10:16 02/24/25 10:19 Temperature 97.7 F Pulse Rate 98 H 96 H Respiratory Rate 16 Blood Pressure 134/81 134/81 Pulse Oximetry 98 98 Oxygen Delivery Method Room Air 02/24/25 10:30 02/24/25 11:00 02/24/25 14:07 Temperature Pulse Rate 92 H 88 84 Respiratory Rate 16 Blood Pressure 128/76 Pulse Oximetry 99 99 97 Oxygen Delivery Method Room Air MDM - Abdominal Pain Lab Data 02/24/25 10:39 02/24/25 10:39 Labs: Lab Results 02/24/25 Range/Units 10:39 WBC 8.8 (4.5-11.0) X10^3/uL RBC 4.21 L (4.5-5.9) X10^6/uL Hgb 12.8 L (13.5-17.5) g/dL Hct 38.2 L (41-53) % MCV 90.9 (80-100) fL MCH 30.5 (26-34) PG MCHC 33.6 (30-36) % RDW 13.8 (11.6-14.8) % Plt Count 292 (150-400) X10^3/uL Neut % (Auto) 74.2 (50-75) % Lymph % (Auto) 14.7 L (25-40) % Summers % (Auto) 8.9 (3-14) % Eos % (Auto) 1.8 L (2-4) % Baso % (Auto) 0.4 (0-2) % Neut # (Auto) 6500 (0315-5714) /uL Lymph # (Auto) 1300 (7448-8222) /uL Summers # (Auto) 800 (0-900) /uL Eos # (Auto) 200 (0-450) /uL Baso # (Auto) 0 (0-100) /uL Sodium 137 (137-145) mmol/L Potassium 4.5 (3.4-5.1) mmol/L Chloride 105 (98-107) mmol/L Carbon Dioxide 24 (22-32) mmol/L BUN 16 (9-20) mg/dL Creatinine 0.77 (0.66-1.25) mg/dL Estimated GFR > 60 (>60) mL/min BUN/Creatinine Ratio 20.8 (6-22) Glucose 119 H (70-99) mg/dL Calcium 9.0 (8.4-10.2) mg/dL Total Bilirubin 0.5 (0.2-1.3) mg/dL AST 28 (17-59) IU/L ALT 27 (<50) IU/L Alkaline Phosphatase 83 (38-126) U/L Total Protein 7.7 (6.3-8.2) g/dL Albumin 4.1 (3.5-5.0) g/dL Globulin 3.6 (1.7-4.1) g/dL Albumin/Globulin Ratio 1.1 (1.0-2.8) Lipase 53 (23-300) U/L Imaging Data US scrotum: Radiologist's Impression: PROCEDURE: US SCROTUM INDICATIONS: right testicle swelling TECHNIQUE: Real-time scanning was performed of the scrotum and testicles, with image documentation. Color and pulse Doppler interrogation was performed of both testicles. COMPARISON: None. FINDINGS: Right: Testicle is normal in size at 3.7 x 3.2 x 2.3 cm, and homogenous in echotexture. There is a small right-sided hydrocele. The right epididymis is prominent and hypervascular. Overlying scrotal skin is mildly thickened at 7 mm. Left: Testicle is normal in size at 4.1 x 3 x 2.4 cm, and homogeneous in echotexture. Epididymis is prominent and hypervascular. Multiple epidural head cysts can be seen, with the largest measuring up to 3 mm. There is a small left-sided hydrocele. Overlying scrotal skin is mildly thickened at 4.1 mm. Doppler: Color and pulse Doppler demonstrate symmetrically increased vascular flow to the testicles. IMPRESSION: Prominent hypervascular epididymis can be seen on both sides. There is also increased vascularity seen within the testicles. Bilateral epididymo-orchitis is suspected. Scrotal skin thickening can be seen, right worse than left. Small bilateral hydroceles are seen. Dictated by: Walter Jennings M.D. on 02/24/2025 at 11:49 Approved by: Walter Jennings M.D. on 02/24/2025 at 11:53 [facility] Narrative Medical decision making narrative: Patient is a 55-year-old male presenting today with right testicular pain and swelling ongoing for about 1 week. No fevers or chills. Denies any significant injury. On exam he does have significant swelling in pain but no redness no appreciable hernia. Blood work has been reviewed No leukocytosis or anemia WBC is 8.8 hemoglobin 12.8 hematocrit 38.2 CMP no electrolyte abnormality creatinine 0.7 glucose 119 Bilirubin liver enzymes within normal limits Ultrasound scrotum: Bilateral epididymitis with bilateral epididymo-orchitis is suspect it. Small hydroceles bilaterally Patient is received Toradol and 500 mg of Rocephin IV He states that pain has improved after Toradol. Being treated for bilateral epididymitis he has no evidence sepsis. Discussed supportive care. Discharge Plan Departure Patient Disposition: Home Clinical Impression: Epididymitis Instructions: Epididymitis Activity Restrictions/Additional Instructions: *You have been diagnosed with epididymitis *What to do: At this time recommend supportive care supportive underwear may help decrease pain may try ice *Continue to take medications as directed Tylenol Motrin as needed for pain Doxycycline 100 mg twice a day for 7 days *Follow up with your primary care provider in 2-3 days or call [phone] May need to follow up with Urology call Wednesday to schedule an appoint *Return to ER if you should have increasing pain swelling redness fever or any new, worsening or concerning symptoms Prescriptions: New doxycycline hyclate 100 mg capsule 100 mg PO BID Qty: 14 0RF No Action hydrocodone-acetaminophen 5-325 mg tablet 1 tab PO Q6H PRN (Reason: pain) Qty: 10 0RF ondansetron 4 mg tablet,disintegrating 4 mg PO Q8H PRN (Reason: nausea and vomiting) Qty: 10 0RF cyclobenzaprine 10 mg tablet 10 mg PO TID PRN (Reason: muscle spasm) Qty: 14 0RF hydrocodone-acetaminophen 5-325 mg tablet 1 tab PO Q4-6H PRN (Reason: pain) Qty: 10 0RF ketorolac 10 mg tablet 10 mg PO Q6H PRN (Reason: pain) Qty: 14 0RF cyclobenzaprine 10 mg tablet 10 mg PO TID PRN (Reason: muscle spasm) Qty: 14 0RF lidocaine 5 % adhesive patch,medicated 1 patch topical DAILY Qty: 15 0RF Rx Instructions: leave on most painful area for up to 12 hrs erythromycin 5 mg/gram (0.5 %) ointment 0.5 inch EYE-RIGHT TID Qty: 3.5 0RF chlorhexidine gluconate [Peridex] 0.12 % mouthwash 15 ml buccal BID Qty: 300 0RF Stand Alone Forms: Patient Portal/API/Survey
--- NOTE | 2025-02-24 11:17 | PC.NURSE ---
This RN was with Dr. Robledo in patient room when exam of patient reproductive organs was performed by provider which was professional and appropriate interaction throughout.
--- NOTE | 2025-02-24 11:18 | DI.US.S_ITS ---
PROCEDURE: US SCROTUM INDICATIONS: right testicle swelling TECHNIQUE: Real-time scanning was performed of the scrotum and testicles, with image documentation. Color and pulse Doppler interrogation was performed of both testicles. COMPARISON: None. FINDINGS: Right: Testicle is normal in size at 3.7 x 3.2 x 2.3 cm, and homogenous in echotexture. There is a small right-sided hydrocele. The right epididymis is prominent and hypervascular. Overlying scrotal skin is mildly thickened at 7 mm. Left: Testicle is normal in size at 4.1 x 3 x 2.4 cm, and homogeneous in echotexture. Epididymis is prominent and hypervascular. Multiple epidural head cysts can be seen, with the largest measuring up to 3 mm. There is a small left-sided hydrocele. Overlying scrotal skin is mildly thickened at 4.1 mm. Doppler: Color and pulse Doppler demonstrate symmetrically increased vascular flow to the testicles. IMPRESSION: Prominent hypervascular epididymis can be seen on both sides. There is also increased vascularity seen within the testicles. Bilateral epididymo-orchitis is suspected. Scrotal skin thickening can be seen, right worse than left. Small bilateral hydroceles are seen. Dictated by: Walter Jennings M.D. on 02/24/2025 at 11:49 Approved by: Walter Jennings M.D. on 02/24/2025 at 11:53
[2025-02-24] MEDS: KETOROLAC 30 MG/ML VIAL 15 MG IV (12:01)
[2025-02-24] MEDS: cefTRIAXone 500 MG in DEXTROSE 5 % IN WATER 50 ML 100 MG IV (13:29)
[2025-02-24 14:07] VITALS: BP 128/76; PULSE 84; RESP 16; O2SAT 97
== END 2025-02-24 14:08 | disposition home or self-care (01) ==
PROVIDERS: Emergency Provider Emergency Medicine
DX: N45.1 Epididymitis (principal)
CPT/HCPCS: 36415; 76870; 80053; 83690; 85025; 93005; 93010; 96365; 96375; 99284; J0696; J1885